=== PATIENT | female | born 1980 | race Caucasian/White ===

== ENCOUNTER 2019-04-18 22:28 | Emergency (ER) | payer OTHER ==
[~2019-04-18] VITALS: Ht 162.6 cm; Wt 63.5 kg
[2019-04-18 22:30] VITALS: BP 125/64; PULSE 89; RESP 16; Ht 162.6 cm; Wt 63.5 kg
--- NOTE | 2019-04-18 23:50 | ERD ---
ER Documentation Chief Complaint Chief Complaint Pt has laceration on R eyelid HPI 39-year-old female with no reported past medical history who presents with laceration to right upper eyelid. States she was at home was and hit her head and face on the table. Had some pain to the area with some mild bleeding. She otherwise denies vision changes, pain with eye movement, blurry vision, or any other concerning symptoms or injuries. At time of evaluation patient no acute distress. ROS All systems reviewed and are negative except as per history of present illness. Allergies Allergies: Coded Allergies: Sulfa (Sulfonamide Antibiotics) (Verified Allergy, Unknown, 04/18/19) PMhx/Soc Medical and Surgical Hx: pt denies Medical Hx History of Surgery: Yes (nose) Hx Alcohol Use: Yes (socially) Hx Substance Use: No Hx Tobacco Use: No Smoking Status: Current every day smoker FmHx Family History: No diabetes, No coronary disease, No other Physical Exam Vitals Vital Signs Date Temp Pulse Resp B/P (MAP) Pulse Ox O2 O2 Flow FiO2 Time Delivery Rate 04/18/19 98.3 89 16 125/64 100 22:30 (84) Physical Exam Const: No acute distress Head: Atraumatic Eyes: Normal Conjunctiva, right upper eyelid with small half centimeter laceration, moves eyes in all planes, no pain with movement, no orbital crepitus ENT: Normal External Ears, Nose and Mouth. Neck: Full range of motion. No meningismus. Resp: Clear to auscultation bilaterally Cardio: Regular rate and rhythm, no murmurs Abd: Soft, non tender, non distended. Normal bowel sounds Skin: No petechiae or rashes Back: No midline or flank tenderness Ext: No cyanosis, or edema Neur: Awake and alert Psych: Normal Mood and Affect Procedures/MDM 39-year-old female presents with right upper eyelid laceration. Laceration repaired with Dermabond in ED without issue. Laceration Repair by me: Anesthesia: None Location: Right upper eyelid Tendon/Joint/Nerves: No injury Foreign body: None detected after copious irrigation and exploration Technique: Tissue adhesive Post Closure Length: 0.5 cm Patient's bleeding was easily controlled in the department and there is no indication of anemia. No evidence of compartment syndrome, neurologic injury, vascular injury, open joint, tendon laceration, or foreign body. Patient is appropriate for outpatient follow up. 48 hour wound check. Scar minimization instructions given. Departure Diagnosis: Primary Impression: Laceration Condition: Stable Patient Instructions: Laceration, Face (Skin Glue) Additional Instructions: Call your primary care doctor TOMORROW for an appointment during the next 2-3 days.See the doctor sooner or return here if your condition worsens before your appointment time. DEE RATLIFF PA-C Apr 18, 2019 23:50
[2019-04-19] MEDS ORDERED: IBUP-1542 PO (00:08)
== END 2019-04-19 00:11 | disposition home or self-care (01) ==
LOC: FTE 22:28
DX: S01.111A Laceration without foreign body of right eyelid and periocular area, initial encounter (principal); F17.210 Nicotine dependence, cigarettes, uncomplicated; W22.03XA Walked into furniture, initial encounter; Y92.9 Unspecified place or not applicable